=== PATIENT | female | born 1935 | race Caucasian/White ===

== ENCOUNTER → 2018-12-15 | Outpatient (CLI) | payer MEDICARE ==
[~2018-12-15] MED LIST: BAYER ASPIRIN C81 MG PO; BENEFIBER1 EACH PO; CALCITRATE200 MG PO; CLONAZEPAM0.5 M1 PO; GOOD NEIGHBOR150 M1 PO; LEVAQUIN250 MG PO; LEXAPRO20 MG PO; LOMOTIL 0.025 M1 TA1 PO; METFORMIN500 MG PO; OMEPRAZOLE MAGN20 MG PO; PREMARIN0.45 MG PO; PRESERVISION1 SGL PO; QUALITY CHOICE10 M3 PO; SINEMET 25-1001 TA1 PO; Synthroid,Levo25 MCG PO; ULTRAM50 MG PO; VITAMINS FOR HA1 CAP PO; XANAX0.25 MG PO; ZOFRAN ODT4 MG SL; [UNRECOGNIZED DRUG - OTHER] OP
[2018-12-15 08:21] LABS: BASO # 0.1 10*3/uL (0.0-0.1); BASO % 0.9 % (0.0-1.0); EOS # 0.4 10*3/uL (0.0-0.4); HEMATOCRIT 43.5 % (37.0-47.0); HEMOGLOBIN 14.7 g/dl (12.0-16.0); LYMPH # 1.1 10*3/uL (1.3-4.4); LYMPH % 13.3 % (27.0-41.0); MEAN CELL VOLUME 97.3 fl (81.0-99.0); MEAN CORPUSCULAR HGB 32.9 pg (27.0-31.0); MEAN CORPUSCULAR HGB CONC 33.8 g/dl (33.0-37.0); MEAN PLATELET VOLUME 8.5 fl (9.6-12.3); MONO # 0.8 10*3/uL (0.1-1.0); MONO % 10.3 % (3.0-9.0); NEUT # 5.7 10*3/uL (2.3-7.9); PLATELET COUNT AUTOMATED 389 10*3/uL (130-400); RED BLOOD COUNT 4.47 10*6/uL (4.10-5.10); RED CELL DISTRI WIDTH 13.2 % (0-14.5); WHITE BLOOD COUNT 8.1 10*3/uL (4.8-10.8)
[2018-12-15 08:47] LABS: ALBUMIN 4.3 gm/dl (3.1-4.5); BUN 22 mg/dl (7-24); CHLORIDE 103 mmol/L (98-107); CHOLESTEROL 124 mg/dL (<200); CREATININE 0.92 mg/dL (0.55-1.02); FREE T4 0.97 ng/dl (0.76-1.46); POTASSIUM 4.3 mmol/L (3.5-5.1); SGOT/AST 9 IU/L (3-35); SGPT/ALT 8 U/L (12-78); SODIUM 137 mmol/L (136-145); TOTAL PROTEIN 8.6 gm/dL (6.4-8.2); TRIGLYCERIDES 42 mg/dl (<150); VLDL CHOLESTEROL 8 mg/dL (6-40)
[2018-12-15 08:54] LABS: ALKALINE PHOSPHATASE 75 U/L (45-117); HDL CHOLESTEROL 72 mg/dl (40-60); LDL CHOLESTEROL 44 mg/dL (9-159)
[2018-12-15 09:32] LABS: VITAMIN D, 25-HYDROXY 110.5 ng/mL (30-100)
== END | disposition home or self-care (01) ==
LOC: LAB 07:57
PROVIDERS: Internal Medicine
DX: E11.65 Type 2 diabetes mellitus with hyperglycemia (principal); I10 Essential (primary) hypertension; E78.2 Mixed hyperlipidemia; D52.9 Folate deficiency anemia, unspecified; D51.9 Vitamin B12 deficiency anemia, unspecified; E67.3 Hypervitaminosis D

== ENCOUNTER 2018-12-28 13:13 | Emergency (ER) | payer MEDICARE ==
[~2018-12-28] VITALS: Ht 144.7 cm; Wt 48.1 kg
--- NOTE | ~2018-12-28 | EKG ---
[place], [place] ELECTROCARDIOGRAM REPORT NAME: SHONA SHETH UNIT #: [id number] ROOM: DOCTOR: EPIPHANY DRAFT REPORT BIRTHDATE: [birth year] [facility] Test Date: 2018-12-28 Test Time: 14:16:46 Pat Name: SHONA SHETH Department: Room: Gender: F Caregiver Assisted Living: Sushma Calero : 1935 Requested By: ANNE CANSECO Order Number: [id number] Reading MD: William Flores MD Measurements Intervals [place] Rate: 99 P: 75 HI: 136 QRS: 76 QRSD: 86 T: 49 QT: 338 QTc: 434 Interpretive Statements Sinus rhythm Borderline low voltage, extremity leads No previous ECG available for comparison Electronically Signed On 12-29-2018 5:28:53 PDT by William Flores MD CM:EKGRPT:ELECTROCARDIOGRAM REPORT [id number] ANNE KILGORE DRAFT REPORT ANNE CANSECO M.D.
[2018-12-28 14:27] LABS: BASO # 0.1 10*3/uL (0.0-0.1); BASO % 0.7 % (0.0-1.0); EOS # 0.2 10*3/uL (0.0-0.4); EOS % 2.9 % (1.0-4.0); HEMATOCRIT 37.9 % (37.0-47.0); HEMOGLOBIN 13.2 g/dl (12.0-16.0); LYMPH # 1.1 10*3/uL (1.3-4.4); LYMPH % 14.3 % (27.0-41.0); MEAN CELL VOLUME 95.2 fl (81.0-99.0); MEAN CORPUSCULAR HGB 33.2 pg (27.0-31.0); MEAN CORPUSCULAR HGB CONC 34.8 g/dl (33.0-37.0); MEAN PLATELET VOLUME 8.5 fl (9.6-12.3); MONO # 0.6 10*3/uL (0.1-1.0); MONO % 8.4 % (3.0-9.0); NEUT # 5.6 10*3/uL (2.3-7.9); NEUT % 73.3 % (47.0-73.0); PLATELET COUNT AUTOMATED 308 10*3/uL (130-400); RED BLOOD COUNT 3.98 10*6/uL (4.10-5.10); RED CELL DISTRI WIDTH 13.7 % (0-14.5); WHITE BLOOD COUNT 7.6 10*3/uL (4.8-10.8)
[2018-12-28 14:41] LABS: ALBUMIN 3.8 gm/dl (3.1-4.5); ALKALINE PHOSPHATASE 81 U/L (45-117); BUN 19 mg/dl (7-24); CHLORIDE 108 mmol/L (98-107); CREATININE 0.87 mg/dL (0.55-1.02); SGOT/AST 15 IU/L (3-35); SGPT/ALT 9 U/L (12-78); SODIUM 141 mmol/L (136-145); TOTAL PROTEIN 7.6 gm/dL (6.4-8.2)
[2018-12-28 14:57] LABS: BILIRUBIN NEGATIVE (NEGATIVE); BLOOD NEGATIVE (NEGATIVE); CLARITY CLEAR (CLEAR); COLOR YELLOW (YELLOW); GLUCOSE NEGATIVE (NEGATIVE); KETONE NEGATIVE (NEGATIVE); LEUKO ESTERASE NEGATIVE (NEGATIVE); NITRITE NEGATIVE (NEGATIVE); UROBILINOGEN 0.2 E.U./dl (0.2-1.0)
[2018-12-28 15:10] LABS: EPITHELIAL CELLS 0-2
== END 2018-12-28 16:16 | disposition home or self-care (01) ==
LOC: ED 13:13
PROVIDERS: Emergency Medicine
DX: S00.93XA Contusion of unspecified part of head, initial encounter (principal); E11.9 Type 2 diabetes mellitus without complications; G20 Parkinson's disease; R55 Syncope and collapse; W01.198A Fall on same level from slipping, tripping and stumbling with subsequent striking against other object, initial encounter; Y93.89 Activity, other specified; Y92.89 Other specified places as the place of occurrence of the external cause; Y99.8 Other external cause status

== ENCOUNTER 2019-04-02 19:34 | Emergency (ER) | payer MEDICARE ==
[~2019-04-02] VITALS: Ht 144.7 cm; Wt 47.6 kg
== END 2019-04-02 23:42 | disposition home or self-care (01) ==
LOC: ED 19:34
DX: S01.112A Laceration without foreign body of left eyelid and periocular area, initial encounter (principal); S80.11XA Contusion of right lower leg, initial encounter; E11.9 Type 2 diabetes mellitus without complications; Z88.1 Allergy status to other antibiotic agents; Z79.899 Other long term (current) drug therapy; Z79.82 Long term (current) use of aspirin; W01.10XA Fall on same level from slipping, tripping and stumbling with subsequent striking against unspecified object, initial encounter; Y93.G3 Activity, cooking and baking; Y92.090 Kitchen in other non-institutional residence as the place of occurrence of the external cause; Y99.8 Other external cause status

== ENCOUNTER 2019-04-03 11:30 | Emergency (ER) | payer MEDICARE ==
[~2019-04-03] VITALS: Ht 144.7 cm; Wt 47.6 kg
== END 2019-04-03 12:21 | disposition home or self-care (01) ==
LOC: ED 11:30
DX: S00.12XA Contusion of left eyelid and periocular area, initial encounter (principal); E11.9 Type 2 diabetes mellitus without complications; Z88.1 Allergy status to other antibiotic agents; Z79.899 Other long term (current) drug therapy; Z79.82 Long term (current) use of aspirin; W19.XXXA Unspecified fall, initial encounter; Y93.89 Activity, other specified; Y92.89 Other specified places as the place of occurrence of the external cause; Y99.8 Other external cause status

== ENCOUNTER → 2019-04-06 | Outpatient (CLI) | payer MEDICARE ==
[2019-04-06 14:06] LABS: BASO # 0.1 10*3/uL (0.0-0.1); BASO % 0.8 % (0.0-1.0); EOS # 0.1 10*3/uL (0.0-0.4); EOS % 2.1 % (1.0-4.0); HEMATOCRIT 37.1 % (37.0-47.0); HEMOGLOBIN 12.4 g/dl (12.0-16.0); LYMPH # 1.2 10*3/uL (1.3-4.4); LYMPH % 18.3 % (27.0-41.0); MEAN CELL VOLUME 97.4 fl (81.0-99.0); MEAN CORPUSCULAR HGB 32.5 pg (27.0-31.0); MEAN CORPUSCULAR HGB CONC 33.4 g/dl (33.0-37.0); MEAN PLATELET VOLUME 8.9 fl (9.6-12.3); MONO # 0.6 10*3/uL (0.1-1.0); MONO % 9.4 % (3.0-9.0); NEUT # 4.4 10*3/uL (2.3-7.9); NEUT % 69.1 % (47.0-73.0); PLATELET COUNT AUTOMATED 324 10*3/uL (130-400); RED BLOOD COUNT 3.81 10*6/uL (4.10-5.10); RED CELL DISTRI WIDTH 13.3 % (0-14.5); WHITE BLOOD COUNT 6.3 10*3/uL (4.8-10.8)
== END | disposition home or self-care (01) ==
LOC: LAB 13:45
PROVIDERS: Internal Medicine
DX: S00.83XA Contusion of other part of head, initial encounter (principal); X58.XXXA Exposure to other specified factors, initial encounter; Y93.89 Activity, other specified; Y92.89 Other specified places as the place of occurrence of the external cause; Y99.8 Other external cause status

== ENCOUNTER → 2019-06-14 | Outpatient (CLI) | payer MEDICARE ==
[~2019-06-14] MED LIST changes: +BUSPAR5 MG PO; +CAL-CITRATE PL1 EACH PO; +CALCIUM + D SO1 EACH PO; +FEROSUL325 M1 PO; +MELATONIN10 M2 PO; +NORCO 5-325 TA1 EACH PO; +Oscal,Oyster S500 MG PO
[2019-06-14 09:04] LABS: BASO # 0.1 10*3/uL (0.0-0.1); BASO % 0.9 % (0.0-1.0); EOS # 0.1 10*3/uL (0.0-0.4); EOS % 1.7 % (1.0-4.0); HEMATOCRIT 39.9 % (37.0-47.0); HEMOGLOBIN 13.3 g/dl (12.0-16.0); LYMPH # 0.9 10*3/uL (1.3-4.4); LYMPH % 17.2 % (27.0-41.0); MEAN CELL VOLUME 96.1 fl (81.0-99.0); MEAN CORPUSCULAR HGB CONC 33.3 g/dl (33.0-37.0); MEAN PLATELET VOLUME 8.3 fl (9.6-12.3); MONO # 0.5 10*3/uL (0.1-1.0); MONO % 8.3 % (3.0-9.0); NEUT # 3.9 10*3/uL (2.3-7.9); NEUT % 71.5 % (47.0-73.0); PLATELET COUNT AUTOMATED 325 10*3/uL (130-400); RED BLOOD COUNT 4.15 10*6/uL (4.10-5.10); RED CELL DISTRI WIDTH 13.2 % (0-14.5); WHITE BLOOD COUNT 5.4 10*3/uL (4.8-10.8)
[2019-06-14 09:41] LABS: ALBUMIN 3.7 gm/dl (3.1-4.5); ALKALINE PHOSPHATASE 63 U/L (45-117); BUN 11 mg/dl (7-24); CHLORIDE 107 mmol/L (98-107); CHOLESTEROL 113 mg/dL (<200); CREATININE 0.79 mg/dL (0.55-1.02); FREE T4 0.94 ng/dl (0.76-1.46); HDL CHOLESTEROL 79 mg/dl (40-60); LDL CHOLESTEROL 26 mg/dL (9-159); POTASSIUM 3.9 mmol/L (3.5-5.1); SGOT/AST 11 IU/L (3-35); SGPT/ALT 9 U/L (12-78); SODIUM 143 mmol/L (136-145); TOTAL PROTEIN 7.5 gm/dL (6.4-8.2); TRIGLYCERIDES 38 mg/dl (<150); VLDL CHOLESTEROL 8 mg/dL (6-40)
[2019-06-14 10:21] LABS: VITAMIN D, 25-HYDROXY 67.5 ng/mL (30-100)
== END | disposition home or self-care (01) ==
LOC: LAB 08:34
PROVIDERS: Internal Medicine
DX: I10 Essential (primary) hypertension (principal); E11.9 Type 2 diabetes mellitus without complications; E78.2 Mixed hyperlipidemia; E55.9 Vitamin D deficiency, unspecified

== ENCOUNTER 2019-07-04 09:52 | Inpatient (IN) | payer MEDICARE ==
[~2019-07-04] VITALS: Ht 142.2 cm; Wt 45.4 kg
[~2019-07-04 09:52] MED LIST changes: -BUSPAR5 MG PO; -CAL-CITRATE PL1 EACH PO; -CALCIUM + D SO1 EACH PO; -FEROSUL325 M1 PO; -MELATONIN10 M2 PO; -NORCO 5-325 TA1 EACH PO; -Oscal,Oyster S500 MG PO
[2019-07-04 09:58] VITALS: BP 148/61
[2019-07-04 11:13] LABS: BASO % 0.5 % (0.0-1.0); EOS # 0.1 10*3/uL (0.0-0.4); EOS % 0.8 % (1.0-4.0); HEMATOCRIT 42.1 % (37.0-47.0); HEMOGLOBIN 14.2 g/dl (12.0-16.0); LYMPH # 1.2 10*3/uL (1.3-4.4); LYMPH % 15.7 % (27.0-41.0); MEAN CELL VOLUME 94.2 fl (81.0-99.0); MEAN CORPUSCULAR HGB 31.8 pg (27.0-31.0); MEAN CORPUSCULAR HGB CONC 33.7 g/dl (33.0-37.0); MEAN PLATELET VOLUME 8.4 fl (9.6-12.3); MONO # 0.6 10*3/uL (0.1-1.0); NEUT # 5.6 10*3/uL (2.3-7.9); NEUT % 74.9 % (47.0-73.0); PLATELET COUNT AUTOMATED 426 10*3/uL (130-400); RED BLOOD COUNT 4.47 10*6/uL (4.10-5.10); RED CELL DISTRI WIDTH 13.4 % (0-14.5); WHITE BLOOD COUNT 7.5 10*3/uL (4.8-10.8)
[2019-07-04 11:27] LABS: ALBUMIN 4.3 gm/dl (3.1-4.5); ALKALINE PHOSPHATASE 62 U/L (45-117); BUN 18 mg/dl (7-24); CHLORIDE 107 mmol/L (98-107); CREATININE 0.91 mg/dL (0.55-1.02); POTASSIUM 3.8 mmol/L (3.5-5.1); SGOT/AST 14 IU/L (3-35); SGPT/ALT 16 U/L (12-78); SODIUM 141 mmol/L (136-145); TOTAL PROTEIN 8.4 gm/dL (6.4-8.2)
[2019-07-04 11:36] LABS: BILIRUBIN NEGATIVE (NEGATIVE); BLOOD NEGATIVE (NEGATIVE); CLARITY SL CLOUDY (CLEAR); COLOR YELLOW (YELLOW); GLUCOSE NEGATIVE (NEGATIVE); KETONE NEGATIVE (NEGATIVE); LEUKO ESTERASE NEGATIVE (NEGATIVE); NITRITE NEGATIVE (NEGATIVE); PH 6.5 (5.0-9.0); UROBILINOGEN 0.2 E.U./dl (0.2-1.0)
[2019-07-04 11:47] LABS: BACTERIA TRACE; RBC 0-2 rbc/hpf (0-2); WBC 0-2 wbc/hpf (0-5)
[2019-07-04 12:00] VITALS: BP 132/72
[2019-07-04 14:00] VITALS: BP 118/88
--- NOTE | 2019-07-04 14:02 | NUR ---
MSADMTime: N A 83 year old FEMALE admitted to 4E under services of TALYA LEONARD MD. Pt. arrived via bed from ER. Chief complaint: WEAKNESS. KOMAL SANDOVAL
[2019-07-04] MEDS ORDERED: FEROSUL325 M1 PO (14:20)
[2019-07-04] MEDS ORDERED: CAL-CITRATE PL1 EACH PO (14:21)
[2019-07-04] MEDS ORDERED: CALCIUM + D SO1 EACH PO (14:23)
[2019-07-04 16:00] VITALS: BP 120/86
[2019-07-04] MEDS ORDERED: MELATONIN10 M2 PO (17:20)
[2019-07-04] MEDS ORDERED: BUSPAR5 MG PO (17:20)
[2019-07-04] MEDS ORDERED: Oscal,Oyster S500 MG PO (18:55)
[2019-07-04 20:00] VITALS: BP 113/63
[2019-07-05] VITALS: BP 145/63
[2019-07-05 08:00] VITALS: BP 142/58
--- NOTE | 2019-07-05 08:05 | NUR ---
PHYSICAL THERAPY Screen and PT eval received will follow thank you Vanesa Alvarenga PT
--- NOTE | 2019-07-05 09:00 | NUR ---
Associate Professor Of Theology in to talk to patient. Patient states lives at home with her daughter. There are 0 steps in the home. Physician: Dr. Marge Khalil Pharmacy: [facility] Home health services: wants [facility] Patient's level of ADLs: MINIMAL ASSIST Patient has working utilities: yes DME: walker Follow-up physician's appointment after d/c: she prefers to make her own follow up appt after discharge Does patient want to access PORTAL?: no Discharge plan discussed with patient. She lives at home with her daughter. She is independent in her ADLs and ambulates with a walker. Discussed short term SNF and she refuses. Discussed home health care services and she is agreeable. When provided with a list of agencies she chose [facility] as she has had them in the past. When medically stable she will be discharged to home with [facility]. She states he daughter will provide transportation on discharge. VASHTI SALGADO
[2019-07-05 12:00] VITALS: BP 148/60
--- NOTE | 2019-07-05 14:06 | NUR ---
PHYSICAL THERAPY Chart review done. Pt off floor for test. Will re-attempt eval as able. Kaleigh Pineda, PT
--- NOTE | 2019-07-05 15:14 | NUR ---
XANAX GIVEN PER REQUEST FOR C/O ANXIETY. WILL MONITOR.
[2019-07-05 16:00] VITALS: BP 138/76
--- NOTE | 2019-07-05 16:12 | NUR ---
Nursing screen received and occupational therapy orders received. Will follow up with patient. thank you. Nieves Ivy, OTR/L
--- NOTE | 2019-07-05 19:15 | NUR ---
PT IS IN BED ASLEEP AT THIS TIME. NO S/S OF DISTRESS NOTED. RESPS ARE EASY AND NONLABORED. BED LOW, CALL LIGHT WITHIN REACH. WILL CONTINUE TO MONITOR.
[2019-07-05 20:00] VITALS: BP 130/71
--- NOTE | 2019-07-05 20:57 | NUR ---
PT MEDICATED WITH PRN TYLENOL AT THIS TIME FOR C/O PAIN IN HER LEFT HIP RATED A 6/10. WILL MONITOR FOR EFFECTIVENESS.
--- NOTE | 2019-07-05 21:30 | NUR ---
PT RESTING COMFORTABLY IN BED WITH NO S/S OF DISTRESS NOTED. PRN TYLENOL EFFECTIVE.
[2019-07-06] VITALS: BP 126/64
[2019-07-06 08:00] VITALS: BP 143/65
[2019-07-06] MEDS ORDERED: NORCO 5-325 TA1 EACH PO (09:17)
--- NOTE | 2019-07-06 09:43 | NUR ---
MESSAGE LEFT ON [facility]S VOICEMAIL ABOUT PENDING DISCHARGE. AWAITING CALL BACK.
--- NOTE | 2019-07-06 10:15 | NUR ---
Occupational Therapy evaluation completed on 4 with full eval to follow. Recommend OT upon d/c with home health. Daughter present and in agreement with this plan. Patient to be discharged today. Emily Shrestha OTr/l
--- NOTE | 2019-07-06 10:15 | NUR ---
PHYSICAL THERAPY Patrick completed low level of complexity 49289 as pt getting dressed and being discharged from hospital to home with daughter. Pt/dgtr agreeable to home health and will have 24 hr care over the next several days until dgtr here today retires and then she will be home with pt t/o the day. Discharge to home with 24 hr care and PT/OT Vanesa Alvarenga PT
--- NOTE | 2019-07-06 10:23 | NUR ---
In to see patient, daughter at bedside. Daughter stating since patient has changed her insurance they are no longer in network with [facility]. Discussed [facility] and they are agreeable. CM notified.
--- NOTE | 2019-07-06 10:29 | NUR ---
Discharge instructions reviewed with patient/family. Patient receptive and verbalizes understanding. Follow-up care arranged. Written instructions given to patient/family. BROOKLYN SANTIAGO
--- NOTE | 2019-07-06 11:55 | NUR ---
Faxed new home health order to [facility] as was discussed with the patient earlier since [facility] is out of network with her insurance.
--- NOTE | 2019-07-06 14:47 | NUR ---
Received call from Rosita martinez [facility]. They are able to accept patient.
== END 2019-07-06 10:29 | disposition home health service (06) | DRG 552 ==
LOC: ED 09:52 → 4E 11:57 → EDHOLD 11:57 → 4E 12:57
PROVIDERS: Nurse Practitioner Family; ADMIT Internal Medicine
DX: M48.061 Spinal stenosis, lumbar region without neurogenic claudication (principal); R62.7 Adult failure to thrive; G20 Parkinson's disease; I10 Essential (primary) hypertension; E11.65 Type 2 diabetes mellitus with hyperglycemia; Z68.22 Body mass index [BMI] 22.0-22.9, adult

== ENCOUNTER → 2020-02-28 | Outpatient (CLI) | payer MEDICARE ==
[~2020-02-28] MED LIST changes: +BUSPAR5 MG PO; +CAL-CITRATE PL1 EACH PO; +CALCIUM + D SO1 EACH PO; +FEROSUL325 M1 PO; +MELATONIN10 M2 PO; +NORCO 5-325 TA1 EACH PO; +Oscal,Oyster S500 MG PO
== END | disposition home or self-care (01) ==
LOC: RAD 14:02
PROVIDERS: ATTEND Internal Medicine
DX: M25.552 Pain in left hip (principal); R07.82 Intercostal pain

== ENCOUNTER → 2020-03-08 | Outpatient (CLI) | payer MEDICARE | END | disposition home or self-care (01) | LOC: RAD 13:18 | PROVIDERS: ATTEND Internal Medicine | DX: Z78.0 Asymptomatic menopausal state (principal) ==

== ENCOUNTER → 2020-04-03 | Outpatient (CLI) | payer MEDICARE ==
[~2020-04-03] MED LIST changes: +ASPIRIN ADULT L81 M2 PO
[2020-04-03 10:53] VITALS: BP 149/76
== END | disposition home or self-care (01) ==
LOC: INJECTION 04-01 11:00
PROVIDERS: ATTEND Internal Medicine
DX: M81.0 Age-related osteoporosis without current pathological fracture (principal); E11.9 Type 2 diabetes mellitus without complications; G20 Parkinson's disease; Z90.710 Acquired absence of both cervix and uterus

== ENCOUNTER → 2020-07-10 | Outpatient (CLI) | payer MEDICARE ==
[2020-07-10 08:45] LABS: BASO # 0.1 10*3/uL (0.0-0.1); BASO % 0.9 % (0.0-1.0); EOS # 0.1 10*3/uL (0.0-0.4); EOS % 2.2 % (1.0-4.0); HEMATOCRIT 38.6 % (37.0-47.0); LYMPH % 16.9 % (27.0-41.0); MEAN CORPUSCULAR HGB 31.3 pg (27.0-31.0); MEAN CORPUSCULAR HGB CONC 33.7 g/dl (33.0-37.0); MEAN PLATELET VOLUME 8.6 fl (9.6-12.3); MONO # 0.5 10*3/uL (0.1-1.0); MONO % 8.3 % (3.0-9.0); NEUT # 4.1 10*3/uL (2.3-7.9); NEUT % 71.5 % (47.0-73.0); PLATELET COUNT AUTOMATED 356 10*3/uL (130-400); RED BLOOD COUNT 4.15 10*6/uL (4.10-5.10); RED CELL DISTRI WIDTH 13.8 % (0-14.5); WHITE BLOOD COUNT 5.8 10*3/uL (4.8-10.8)
[2020-07-10 09:19] LABS: ALBUMIN 3.7 gm/dl (3.1-4.5); BUN 17 mg/dl (7-24); CHLORIDE 107 mmol/L (98-107); CHOLESTEROL 106 mg/dL (<200); CREATININE 0.78 mg/dL (0.55-1.02); POTASSIUM 4.3 mmol/L (3.5-5.1); SGOT/AST 8 IU/L (3-35); SGPT/ALT 9 U/L (12-78); SODIUM 139 mmol/L (136-145); TRIGLYCERIDES 49 mg/dl (<150); VLDL CHOLESTEROL 10 mg/dL (6-40)
[2020-07-10 09:23] LABS: ALKALINE PHOSPHATASE 63 U/L (45-117); FREE T4 0.93 ng/dl (0.76-1.46); HDL CHOLESTEROL 66 mg/dl (40-60); LDL CHOLESTEROL 30 mg/dL (9-159); TOTAL PROTEIN 7.9 gm/dL (6.4-8.2)
[2020-07-10 10:24] LABS: VITAMIN D, 25-HYDROXY 51.4 ng/mL (30-100)
== END | disposition home or self-care (01) ==
LOC: LAB 03:03
PROVIDERS: ATTEND Internal Medicine
DX: Z00.00 Encounter for general adult medical examination without abnormal findings (principal); I10 Essential (primary) hypertension; E11.9 Type 2 diabetes mellitus without complications; E03.9 Hypothyroidism, unspecified; E55.9 Vitamin D deficiency, unspecified

== ENCOUNTER → 2020-10-02 | Outpatient (CLI) | payer MEDICARE ==
[2020-10-02 09:00] VITALS: BP 117/55
== END | disposition home or self-care (01) ==
LOC: INJECTION 00:20
PROVIDERS: ATTEND Internal Medicine
DX: M81.0 Age-related osteoporosis without current pathological fracture (principal); E11.9 Type 2 diabetes mellitus without complications

== ENCOUNTER 2021-02-15 11:09 | Emergency (ER) | payer MEDICARE | END 2021-02-15 13:44 | disposition home or self-care (01) | LOC: ED 11:09 | DX: J06.9 Acute upper respiratory infection, unspecified (principal); Z20.822 Contact with and (suspected) exposure to COVID-19; Z88.1 Allergy status to other antibiotic agents; Z79.899 Other long term (current) drug therapy; Z79.82 Long term (current) use of aspirin ==

== ENCOUNTER → 2021-07-08 | Outpatient (CLI) | payer MEDICARE ==
[2021-07-08 08:27] LABS: BASO # 0.1 10*3/uL (0.0-0.1); EOS # 0.2 10*3/uL (0.0-0.4); EOS % 2.6 % (1.0-4.0); HEMATOCRIT 41.6 % (37.0-47.0); LYMPH # 1.1 10*3/uL (1.3-4.4); LYMPH % 17.3 % (27.0-41.0); MEAN CELL VOLUME 90.6 fl (81.0-99.0); MEAN CORPUSCULAR HGB 30.7 pg (27.0-31.0); MEAN CORPUSCULAR HGB CONC 33.9 g/dl (33.0-37.0); MEAN PLATELET VOLUME 8.6 fl (9.6-12.3); MONO # 0.6 10*3/uL (0.1-1.0); MONO % 9.7 % (3.0-9.0); NEUT # 4.2 10*3/uL (2.3-7.9); NEUT % 69.1 % (47.0-73.0); PLATELET COUNT AUTOMATED 409 10*3/uL (130-400); RED BLOOD COUNT 4.59 10*6/uL (4.10-5.10); RED CELL DISTRI WIDTH 14.9 % (0-14.5); WHITE BLOOD COUNT 6.1 10*3/uL (4.8-10.8)
[2021-07-08 08:48] LABS: BUN 19 mg/dl (7-24); CHLORIDE 106 mmol/L (98-107); CREATININE 0.83 mg/dL (0.55-1.02); POTASSIUM 4.3 mmol/L (3.5-5.1); SGOT/AST 10 IU/L (3-35); SGPT/ALT 7 U/L (12-78); SODIUM 139 mmol/L (136-145)
[2021-07-08 08:53] LABS: ALKALINE PHOSPHATASE 62 U/L (45-117); CHOLESTEROL 125 mg/dL (<200); LDL CHOLESTEROL 39 mg/dL (9-159); T3 UPTAKE 34 % (31-39); THYROXINE (T4) TOTAL 9.6 ug/dl (4.8-13.9); TOTAL PROTEIN 8.4 gm/dL (6.4-8.2); TRIGLYCERIDES 61 mg/dl (<150)
[2021-07-08 09:31] LABS: VITAMIN D, 25-HYDROXY 31.9 ng/mL (30-100)
== END ==
LOC: LAB
PROVIDERS: ATTEND Internal Medicine
DX: I12.9 Hypertensive chronic kidney disease with stage 1 through stage 4 chronic kidney disease, or unspecified chronic kidney disease (principal); Z00.00 Encounter for general adult medical examination without abnormal findings; E03.9 Hypothyroidism, unspecified; E11.9 Type 2 diabetes mellitus without complications; N18.30 Chronic kidney disease, stage 3 unspecified; I10 Essential (primary) hypertension

== ENCOUNTER → 2021-07-15 | Outpatient (CLI) | payer MEDICARE | END | disposition home or self-care (01) | LOC: US 00:38 | PROVIDERS: ATTEND Internal Medicine | DX: I73.9 Peripheral vascular disease, unspecified (principal) ==

== ENCOUNTER → 2021-07-23 | Outpatient (CLI) | payer MEDICARE ==
[2021-07-23 13:48] LABS: BILIRUBIN Negative (Negative); BLOOD Negative (Negative); CLARITY Cloudy (Clear); COLOR Yellow (Yellow); GLUCOSE Negative (Negative); KETONE Negative (Negative); LEUKO ESTERASE Trace (Negative); NITRITE Negative (Negative); UROBILINOGEN 0.2 E.U./dl (0.0-1.0)
[2021-07-23 13:58] LABS: BACTERIA TRACE; CALCIUM OXALATE CRYSTALS 1+
== END | disposition home or self-care (01) ==
LOC: LAB 12:52
PROVIDERS: ATTEND Internal Medicine
DX: N39.0 Urinary tract infection, site not specified (principal)

== ENCOUNTER → 2021-08-08 | Outpatient (CLI) | payer MEDICARE | END | disposition home or self-care (01) | LOC: CT 01:18 | PROVIDERS: ATTEND Internal Medicine | DX: I77.89 Other specified disorders of arteries and arterioles (principal); I73.9 Peripheral vascular disease, unspecified; K80.20 Calculus of gallbladder without cholecystitis without obstruction ==

== ENCOUNTER 2021-08-14 07:43 | Emergency (ER) | payer MEDICARE ==
[~2021-08-14] VITALS: Wt 46.3 kg
[2021-08-14] MEDS ORDERED: HYDROCODONE-AC1 EAC1 PO (10:32)
== END 2021-08-14 10:32 | disposition home or self-care (01) ==
LOC: ED 07:43
DX: M25.551 Pain in right hip (principal); Z88.1 Allergy status to other antibiotic agents; Z79.899 Other long term (current) drug therapy; Z79.82 Long term (current) use of aspirin; Z98.51 Tubal ligation status; Z90.710 Acquired absence of both cervix and uterus

== ENCOUNTER 2021-08-15 20:24 | Emergency (ER) | payer MEDICARE ==
[~2021-08-15] VITALS: Ht 149.8 cm; Wt 46.3 kg
[~2021-08-15 20:24] MED LIST changes: +HYDROCODONE-AC1 EAC1 PO
[2021-08-15 21:35] LABS: BASO % 0.6 % (0.0-1.0); EOS # 0.1 10*3/uL (0.0-0.4); HEMATOCRIT 35.4 % (37.0-47.0); LYMPH # 0.8 10*3/uL (1.3-4.4); LYMPH % 10.9 % (27.0-41.0); MEAN CELL VOLUME 92.7 fl (81.0-99.0); MEAN CORPUSCULAR HGB 31.2 pg (27.0-31.0); MEAN CORPUSCULAR HGB CONC 33.6 g/dl (33.0-37.0); MEAN PLATELET VOLUME 8.5 fl (9.6-12.3); MONO # 0.9 10*3/uL (0.1-1.0); MONO % 12.9 % (3.0-9.0); NEUT # 5.2 10*3/uL (2.3-7.9); NEUT % 74.3 % (47.0-73.0); PLATELET COUNT AUTOMATED 315 10*3/uL (130-400); RED BLOOD COUNT 3.82 10*6/uL (4.10-5.10); RED CELL DISTRI WIDTH 14.6 % (0-14.5)
[2021-08-15 21:52] LABS: ALKALINE PHOSPHATASE 51 U/L (45-117); BUN 25 mg/dl (7-24); CHLORIDE 108 mmol/L (98-107); CREATININE 0.85 mg/dL (0.55-1.02); SGOT/AST 10 IU/L (3-35); SODIUM 138 mmol/L (136-145); TOTAL PROTEIN 7.2 gm/dL (6.4-8.2)
[2021-08-15 21:56] LABS: SGPT/ALT < 6 U/L (12-78)
[2021-08-15 23:02] LABS: BILIRUBIN 1+ (Negative); BLOOD Negative (Negative); CLARITY Clear (Clear); COLOR Dark Yellow (Yellow); GLUCOSE Negative (Negative); KETONE Trace (Negative); LEUKO ESTERASE Trace (Negative); NITRITE Negative (Negative); PH 5.5 (4.5-8.0); SPECIFIC GRAVITY >= 1.030 (1.001-1.030)
[2021-08-15 23:15] LABS: EPITHELIAL CELLS 21-30
[2021-08-15 23:16] LABS: WBC 0-2 wbc/hpf (0-5)
[2021-08-15 23:17] LABS: BACTERIA TRACE
== END 2021-08-16 00:50 | disposition home or self-care (01) ==
LOC: ED 20:24
PROVIDERS: Emergency Medicine; Internal Medicine
DX: S70.11XA Contusion of right thigh, initial encounter (principal); K40.90 Unilateral inguinal hernia, without obstruction or gangrene, not specified as recurrent; Z88.1 Allergy status to other antibiotic agents; Z79.899 Other long term (current) drug therapy; Z79.82 Long term (current) use of aspirin; Z90.711 Acquired absence of uterus with remaining cervical stump; Z98.51 Tubal ligation status; W18.39XA Other fall on same level, initial encounter; Y93.89 Activity, other specified; Y92.89 Other specified places as the place of occurrence of the external cause; Y99.8 Other external cause status

== ENCOUNTER 2021-08-25 10:33 | Inpatient (IN) | payer MEDICARE ==
[~2021-08-25] VITALS: Ht 149.8 cm; Wt 46.1 kg
[2021-08-25 10:36] VITALS: BP 149/49
[2021-08-25] MEDS ORDERED: PROVENTIL HFA6.7 GM INH (10:41)
[2021-08-25] MEDS ORDERED: CYMBALTA30 MG PO (10:42)
[2021-08-25 11:17] LABS: BASO % 0.6 % (0.0-1.0); EOS # 0.1 10*3/uL (0.0-0.4); EOS % 1.7 % (1.0-4.0); LYMPH # 0.7 10*3/uL (1.3-4.4); LYMPH % 10.6 % (27.0-41.0); MEAN CELL VOLUME 92.7 fl (81.0-99.0); MEAN CORPUSCULAR HGB 31.1 pg (27.0-31.0); MEAN CORPUSCULAR HGB CONC 33.5 g/dl (33.0-37.0); MEAN PLATELET VOLUME 8.1 fl (9.6-12.3); MONO # 0.8 10*3/uL (0.1-1.0); MONO % 10.9 % (3.0-9.0); NEUT # 5.3 10*3/uL (2.3-7.9); NEUT % 75.9 % (47.0-73.0); PLATELET COUNT AUTOMATED 527 10*3/uL (130-400); RED BLOOD COUNT 3.99 10*6/uL (4.10-5.10); RED CELL DISTRI WIDTH 14.8 % (0-14.5)
[2021-08-25 11:28] LABS: ACT PARTIAL THROMBO TIME 28.3 SECONDS (20.0-32.1)
[2021-08-25 11:37] LABS: ALKALINE PHOSPHATASE 82 U/L (45-117); BUN 9 mg/dl (7-24); CHLORIDE 110 mmol/L (98-107); CREATININE 0.76 mg/dL (0.55-1.02); LIPASE 174 U/L (73-393); POTASSIUM 3.6 mmol/L (3.5-5.1); SGOT/AST 13 IU/L (3-35); SGPT/ALT 7 U/L (12-78); SODIUM 141 mmol/L (136-145)
[2021-08-25 13:03] LABS: BILIRUBIN 1+ (Negative); BLOOD Negative (Negative); CLARITY Clear (Clear); COLOR Dark Yellow (Yellow); GLUCOSE Negative (Negative); KETONE Trace (Negative); LEUKO ESTERASE Trace (Negative); NITRITE Negative (Negative); PH 5.5 (4.5-8.0)
[2021-08-25 13:15] LABS: CALCIUM OXALATE CRYSTALS 1+; FINE GRANULAR CAST 0-2
[2021-08-25 13:16] LABS: MUCOUS 1+
[2021-08-25 16:52] VITALS: BP 135/62
[2021-08-25] MEDS ORDERED: METFORMIN HYD1000 MG PO (17:48)
[2021-08-25] MEDS ORDERED: GABAPENTIN100 M2 PO (17:51)
[2021-08-25] MEDS ORDERED: CYMBALTA60 MG PO (17:51)
[2021-08-25] MEDS ORDERED: FOSAMAX70 M1 PO (17:52)
[2021-08-25] MEDS ORDERED: COMTAN200 MG PO (17:52)
[2021-08-25] MEDS ORDERED: 50+ ADULT EYE1 EACH PO (17:53)
[2021-08-25] MEDS ORDERED: REFRESH TEARS15 ML OP (17:57)
[2021-08-25 20:00] VITALS: BP 160/60
[2021-08-26] VITALS: BP 150/72
[2021-08-26 06:24] LABS: BUN 8 mg/dl (7-24); CHLORIDE 110 mmol/L (98-107); POTASSIUM 3.9 mmol/L (3.5-5.1); SODIUM 142 mmol/L (136-145)
[2021-08-26 06:28] LABS: ALKALINE PHOSPHATASE 65 U/L (45-117); CREATININE 0.62 mg/dL (0.55-1.02); SGOT/AST 9 IU/L (3-35); SGPT/ALT 10 U/L (12-78); TOTAL PROTEIN 6.9 gm/dL (6.4-8.2)
[2021-08-26 06:33] LABS: BASO % 0.5 % (0.0-1.0); EOS # 0.1 10*3/uL (0.0-0.4); EOS % 1.9 % (1.0-4.0); HEMATOCRIT 34.3 % (37.0-47.0); LYMPH # 0.6 10*3/uL (1.3-4.4); LYMPH % 8.8 % (27.0-41.0); MEAN CORPUSCULAR HGB 30.9 pg (27.0-31.0); MEAN CORPUSCULAR HGB CONC 33.2 g/dl (33.0-37.0); MEAN PLATELET VOLUME 8.3 fl (9.6-12.3); MONO # 0.8 10*3/uL (0.1-1.0); MONO % 12.7 % (3.0-9.0); NEUT # 4.8 10*3/uL (2.3-7.9); NEUT % 75.3 % (47.0-73.0); PLATELET COUNT AUTOMATED 514 10*3/uL (130-400); RED BLOOD COUNT 3.69 10*6/uL (4.10-5.10); RED CELL DISTRI WIDTH 14.6 % (0-14.5); WHITE BLOOD COUNT 6.4 10*3/uL (4.8-10.8)
[2021-08-26 08:00] VITALS: BP 167/78
[2021-08-26] MEDS ORDERED: PRESERVISION A1 EAC4 PO (10:50)
[2021-08-26 12:00] VITALS: BP 168/72
[2021-08-26 16:00] VITALS: BP 157/75
[2021-08-26 20:00] VITALS: BP 171/76
[2021-08-27] VITALS: BP 166/83
[2021-08-27 08:00] VITALS: BP 145/62
[2021-08-27] MEDS ORDERED: VIBRAMYCIN100 MG PO (08:32)
== END 2021-08-27 13:06 | disposition home or self-care (01) | DRG 179 ==
LOC: ED 10:33 → 4E 13:42 → EDHOLD 13:42 → 4E 14:02
PROVIDERS: Emergency Medicine; ADMIT Internal Medicine; ATTEND Internal Medicine
DX: J15.6 Pneumonia due to other Gram-negative bacteria (principal); G20 Parkinson's disease; R62.7 Adult failure to thrive; I10 Essential (primary) hypertension; E11.9 Type 2 diabetes mellitus without complications; E03.9 Hypothyroidism, unspecified; R29.6 Repeated falls; F41.1 Generalized anxiety disorder; Z90.710 Acquired absence of both cervix and uterus

== ENCOUNTER → 2021-09-18 | Outpatient (CLI) | payer MEDICARE ==
[~2021-09-18] MED LIST changes: +50+ ADULT EYE1 EACH PO; +COMTAN200 MG PO; +CYMBALTA30 MG PO; +CYMBALTA60 MG PO; +FOSAMAX70 M1 PO; +GABAPENTIN100 M2 PO; +METFORMIN HYD1000 MG PO; +PRESERVISION A1 EAC4 PO; +PROVENTIL HFA6.7 GM INH; +REFRESH TEARS15 ML OP; +VIBRAMYCIN100 MG PO
== END | disposition home or self-care (01) ==
LOC: RAD 00:06
PROVIDERS: ATTEND Internal Medicine
DX: R06.02 Shortness of breath (principal); K44.9 Diaphragmatic hernia without obstruction or gangrene

== ENCOUNTER 2022-03-25 16:04 | Emergency (ER) | payer MEDICARE ==
[~2022-03-25] VITALS: Ht 149.9 cm; Wt 39.9 kg
[~2022-03-25 16:04] MED LIST changes: +METFORMIN HYDR500 MG PO; -METFORMIN500 MG PO
[2022-03-25 17:19] LABS: BILIRUBIN 1+ (Negative); BLOOD Negative (Negative); CLARITY Clear (Clear); COLOR Dark Yellow (Yellow); GLUCOSE Negative (Negative); KETONE Trace (Negative); LEUKO ESTERASE 1+ (Negative); NITRITE Negative (Negative); PH 5.5 (4.5-8.0); SPECIFIC GRAVITY 1.025 (1.001-1.030); UROBILINOGEN 0.2 E.U./dl (0.0-1.0)
[2022-03-25] MEDS ORDERED: MYRBETRIQ25 M1 PO (17:19)
[2022-03-25] MEDS ORDERED: Nizoral 2%15 GM T (17:20)
[2022-03-25] MEDS ORDERED: B12 ACTIVE1000 MCG PO (17:21)
[2022-03-25] MEDS ORDERED: ASPIRIN CHEWABL81 MG PO (17:22)
[2022-03-25 17:27] LABS: BASO % 0.2 % (0.0-1.0); EOS % 0.7 % (1.0-4.0); HEMATOCRIT 38.2 % (37.0-47.0); LYMPH # 0.5 10*3/uL (1.3-4.4); LYMPH % 8.1 % (27.0-41.0); MEAN CELL VOLUME 92.3 fl (81.0-99.0); MEAN CORPUSCULAR HGB 32.1 pg (27.0-31.0); MEAN CORPUSCULAR HGB CONC 34.8 g/dl (33.0-37.0); MEAN PLATELET VOLUME 8.3 fl (9.6-12.3); MONO # 0.5 10*3/uL (0.1-1.0); NEUT # 4.9 10*3/uL (2.3-7.9); NEUT % 82.7 % (47.0-73.0); PLATELET COUNT AUTOMATED 315 10*3/uL (130-400); RED BLOOD COUNT 4.14 10*6/uL (4.10-5.10); RED CELL DISTRI WIDTH 13.8 % (0-14.5); WHITE BLOOD COUNT 5.9 10*3/uL (4.8-10.8)
[2022-03-25 17:30] LABS: BACTERIA 1+; CALCIUM OXALATE CRYSTALS 1+
[2022-03-25 17:32] LABS: YEAST TRACE
[2022-03-25 17:41] LABS: ALKALINE PHOSPHATASE 72 U/L (45-117); BUN 18 mg/dl (7-24); CHLORIDE 106 mmol/L (98-107); CREATININE 0.71 mg/dL (0.55-1.02); POTASSIUM 4.1 mmol/L (3.5-5.1); SGOT/AST 9 IU/L (3-35); SGPT/ALT 6 U/L (12-78); SODIUM 137 mmol/L (136-145); TOTAL PROTEIN 7.7 gm/dL (6.4-8.2)
[2022-03-25 17:57] LABS: ACT PARTIAL THROMBO TIME 30.8 SECONDS (20.0-32.1)
== END 2022-03-25 19:02 | disposition home or self-care (01) ==
LOC: ED 16:04
PROVIDERS: Emergency Medicine
DX: R50.9 Fever, unspecified (principal); Z20.822 Contact with and (suspected) exposure to COVID-19; R05.9 Cough, unspecified; R06.02 Shortness of breath; R41.0 Disorientation, unspecified; Z88.1 Allergy status to other antibiotic agents; Z79.899 Other long term (current) drug therapy; Z98.51 Tubal ligation status; Z90.710 Acquired absence of both cervix and uterus

== ENCOUNTER 2022-06-26 12:35 | Emergency (ER) | payer MEDICARE ==
[~2022-06-26] VITALS: Wt 43.5 kg
[~2022-06-26 12:35] MED LIST changes: +ASPIRIN CHEWABL81 MG PO; +B12 ACTIVE1000 MCG PO; +MYRBETRIQ25 M1 PO; +Nizoral 2%15 GM T
[2022-06-26 13:30] LABS: BASO % 0.6 % (0.0-1.0); EOS % 0.5 % (1.0-4.0); HEMATOCRIT 39.7 % (37.0-47.0); LYMPH # 1.3 10*3/uL (1.3-4.4); LYMPH % 20.8 % (27.0-41.0); MEAN CELL VOLUME 94.3 fl (81.0-99.0); MEAN CORPUSCULAR HGB 31.8 pg (27.0-31.0); MEAN CORPUSCULAR HGB CONC 33.8 g/dl (33.0-37.0); MEAN PLATELET VOLUME 8.5 fl (9.6-12.3); MONO # 0.7 10*3/uL (0.1-1.0); MONO % 10.4 % (3.0-9.0); NEUT # 4.3 10*3/uL (2.3-7.9); NEUT % 67.5 % (47.0-73.0); PLATELET COUNT AUTOMATED 343 10*3/uL (130-400); RED BLOOD COUNT 4.21 10*6/uL (4.10-5.10); RED CELL DISTRI WIDTH 14.3 % (0-14.5); WHITE BLOOD COUNT 6.4 10*3/uL (4.8-10.8)
[2022-06-26 13:45] LABS: ALKALINE PHOSPHATASE 59 U/L (46-116); BUN 16 mg/dl (9-23); CHLORIDE 106 mmol/L (98-107); POTASSIUM 4.4 mmol/L (3.4-5.1); TOTAL PROTEIN 7.2 gm/dL (6.0-8.0)
[2022-06-26 13:46] LABS: SGPT/ALT < 7 U/L (10-49)
== END 2022-06-26 16:47 | disposition home or self-care (01) ==
LOC: ED 12:35
PROVIDERS: Nurse Practitioner Family
DX: S22.31XA Fracture of one rib, right side, initial encounter for closed fracture (principal); Z88.1 Allergy status to other antibiotic agents; Z88.2 Allergy status to sulfonamides; Z88.8 Allergy status to other drugs, medicaments and biological substances; Z98.51 Tubal ligation status; Z90.711 Acquired absence of uterus with remaining cervical stump; Z98.890 Other specified postprocedural states; W19.XXXA Unspecified fall, initial encounter; Y93.89 Activity, other specified; Y92.89 Other specified places as the place of occurrence of the external cause; Y99.8 Other external cause status

== ENCOUNTER → 2022-09-16 | Outpatient (CLI) | payer MEDICARE ==
[2022-09-16 09:51] LABS: BASO # 0.1 10*3/uL (0.0-0.1); BASO % 1.2 % (0.0-1.0); EOS # 0.1 10*3/uL (0.0-0.4); EOS % 2.1 % (1.0-4.0); HEMATOCRIT 43.3 % (37.0-47.0); LYMPH # 1.4 10*3/uL (1.3-4.4); LYMPH % 26.5 % (27.0-41.0); MEAN CELL VOLUME 93.5 fl (81.0-99.0); MEAN CORPUSCULAR HGB 32.4 pg (27.0-31.0); MEAN CORPUSCULAR HGB CONC 34.6 g/dl (33.0-37.0); MEAN PLATELET VOLUME 8.4 fl (9.6-12.3); MONO # 0.5 10*3/uL (0.1-1.0); MONO % 10.1 % (3.0-9.0); NEUT # 3.1 10*3/uL (2.3-7.9); NEUT % 59.7 % (47.0-73.0); PLATELET COUNT AUTOMATED 348 10*3/uL (130-400); RED BLOOD COUNT 4.63 10*6/uL (4.10-5.10); RED CELL DISTRI WIDTH 14.3 % (0-14.5); WHITE BLOOD COUNT 5.1 10*3/uL (4.8-10.8)
[2022-09-16 10:22] LABS: ALKALINE PHOSPHATASE 60 U/L (46-116); BUN 13 mg/dl (9-23); CHLORIDE 108 mmol/L (98-107); CHOLESTEROL 119 mg/dL (<200); LDL CHOLESTEROL 35 mg/dL (9-159); THYROID STIM HORMONE (HS) 2.744 uIU/ml (0.550-4.780); TOTAL PROTEIN 7.3 gm/dL (6.0-8.0); TRIGLYCERIDES 51 mg/dl (<150)
[2022-09-16 10:25] LABS: SGPT/ALT < 7 U/L (10-49)
[2022-09-16 10:59] LABS: VITAMIN D, 25-HYDROXY 29.8 ng/mL (30-100)
== END | disposition home or self-care (01) ==
LOC: LAB 01:55
PROVIDERS: ATTEND Internal Medicine
DX: I12.9 Hypertensive chronic kidney disease with stage 1 through stage 4 chronic kidney disease, or unspecified chronic kidney disease (principal); E11.22 Type 2 diabetes mellitus with diabetic chronic kidney disease; N18.30 Chronic kidney disease, stage 3 unspecified; E11.65 Type 2 diabetes mellitus with hyperglycemia; F41.1 Generalized anxiety disorder; M81.0 Age-related osteoporosis without current pathological fracture; G64 Other disorders of peripheral nervous system; R29.6 Repeated falls; M54.50 Low back pain, unspecified; G20 Parkinson's disease

== ENCOUNTER → 2023-03-12 | Outpatient (CLI) | payer MEDICARE | END | disposition home or self-care (01) | LOC: RAD 00:37 | PROVIDERS: ATTEND Internal Medicine | DX: M25.512 Pain in left shoulder (principal); K44.9 Diaphragmatic hernia without obstruction or gangrene; R06.02 Shortness of breath ==

== ENCOUNTER → 2023-03-22 | Outpatient (CLI) | payer MEDICARE ==
[2023-03-22 09:44] LABS: BASO # 0.1 10*3/uL (0.0-0.1); EOS # 0.2 10*3/uL (0.0-0.4); EOS % 3.4 % (1.0-4.0); HEMATOCRIT 45.6 % (37.0-47.0); LYMPH # 1.3 10*3/uL (1.3-4.4); MEAN CELL VOLUME 94.8 fl (81.0-99.0); MEAN CORPUSCULAR HGB CONC 33.8 g/dl (33.0-37.0); MEAN PLATELET VOLUME 8.5 fl (9.6-12.3); MONO # 0.5 10*3/uL (0.1-1.0); MONO % 8.6 % (3.0-9.0); NEUT # 3.9 10*3/uL (2.3-7.9); NEUT % 64.7 % (47.0-73.0); PLATELET COUNT AUTOMATED 351 10*3/uL (130-400); RED BLOOD COUNT 4.81 10*6/uL (4.10-5.10); RED CELL DISTRI WIDTH 13.9 % (0-14.5)
[2023-03-22 10:12] LABS: ALKALINE PHOSPHATASE 71 U/L (46-116); BUN 10 mg/dl (9-23); CHLORIDE 106 mmol/L (98-107); CHOLESTEROL 124 mg/dL (<200); LDL CHOLESTEROL 41 mg/dL (9-159); POTASSIUM 3.8 mmol/L (3.4-5.1); SGPT/ALT < 7 U/L (5-49); TOTAL PROTEIN 7.9 gm/dL (6.0-8.0); TRIGLYCERIDES 50 mg/dl (<150)
== END | disposition home or self-care (01) ==
LOC: LAB 00:55
PROVIDERS: ATTEND Nurse Practitioner Family
DX: Z79.899 Other long term (current) drug therapy (principal)

== ENCOUNTER → 2023-03-25 | Outpatient (CLI) | payer MEDICARE ==
[2023-03-25 11:34] LABS: FREE T4 1.06 ng/dl (0.89-1.76); T3 UPTAKE 21.4 % (22.4-36.7)
== END | disposition home or self-care (01) ==
LOC: LAB 01:08
PROVIDERS: ATTEND Internal Medicine
DX: E03.9 Hypothyroidism, unspecified (principal); Z00.01 Encounter for general adult medical examination with abnormal findings; R79.89 Other specified abnormal findings of blood chemistry

== ENCOUNTER → 2023-12-01 | Outpatient (CLI) | payer MEDICARE ==
[~2023-12-01] MED LIST changes: +BARIUM SULFATE 98% 340 GM BOT PO ONE; +BUSPIRONE HCL10 MG PO; +MELATONIN5 M7 PO; +MEMANTINE HCL5 MG PO; +OXYBUTYNIN5 MG PO; +RIVASTIGMINE T1.5 M1 PO; +RIVASTIGMINE TAR3 M1 PO
== END | disposition home or self-care (01) ==
LOC: RAD/SH 00:24
PROVIDERS: ATTEND Internal Medicine
DX: R13.10 Dysphagia, unspecified (principal)

== ENCOUNTER 2024-01-22 23:55 | Inpatient (IN) | payer MEDICARE ==
[~2024-01-22] VITALS: Ht 147.3 cm; Wt 39.9 kg
[~2024-01-22 23:55] MED LIST changes: -BARIUM SULFATE 98% 340 GM BOT PO ONE
[2024-01-23] VITALS (11 sets, daily range): BP systolic 109–141; BP diastolic 49–749
[2024-01-23 00:52] LABS: BASO % 0.7 % (0.0-1.0); EOS # 0.2 10*3/uL (0.0-0.4); HEMATOCRIT 42.5 % (37.0-47.0); LYMPH # 0.9 10*3/uL (1.3-4.4); LYMPH % 16.1 % (27.0-41.0); MEAN CELL VOLUME 94.9 fl (81.0-99.0); MEAN CORPUSCULAR HGB CONC 32.7 g/dl (33.0-37.0); MEAN PLATELET VOLUME 8.4 fl (9.6-12.3); MONO # 0.9 10*3/uL (0.1-1.0); MONO % 16.6 % (3.0-9.0); NEUT # 3.4 10*3/uL (2.3-7.9); NEUT % 63.4 % (47.0-73.0); PLATELET COUNT AUTOMATED 357 10*3/uL (130-400); RED BLOOD COUNT 4.48 10*6/uL (4.10-5.10); RED CELL DISTRI WIDTH 15.2 % (0-14.5); WHITE BLOOD COUNT 5.4 10*3/uL (4.8-10.8)
[2024-01-23 01:08] LABS: ALKALINE PHOSPHATASE 84 U/L (46-116); BUN 15 mg/dl (9-23); CHLORIDE 105 mmol/L (98-107); POTASSIUM 3.8 mmol/L (3.4-5.1); SGPT/ALT 8 U/L (5-49); TOTAL PROTEIN 7.4 gm/dL (6.0-8.0)
[2024-01-23 01:49] LABS: BILIRUBIN Negative (Negative); BLOOD 1+ (Negative); CLARITY Turbid (Clear); COLOR Dark Yellow (Yellow); GLUCOSE Negative (Negative); KETONE Trace (Negative); LEUKO ESTERASE 3+ (Negative); NITRITE Positive (Negative); SPECIFIC GRAVITY 1.015 (1.001-1.030); UROBILINOGEN 0.2 E.U./dl (0.0-1.0)
[2024-01-23 02:02] LABS: BACTERIA 4+; WBC TNTC wbc/hpf (0-5)
[2024-01-23] MEDS ORDERED: Ceftriaxone Sodium 1 GM/10 ML SYR IV ONE (02:15)
[2024-01-23] MEDS ORDERED: ENTACAPONE200 M1 PO (03:18)
[2024-01-23] MEDS ORDERED: NEURONTIN100 MG PO (03:19)
[2024-01-23] MEDS ORDERED: METFORMIN HYDR500 MG PO ×2 (03:20→15:21)
[2024-01-23] MEDS ORDERED: SINEMET 25-1001 EACH PO (03:21)
[2024-01-23] MEDS ORDERED: ESTRACE 0.01%42.5 GM V (03:21)
[2024-01-23] MEDS ORDERED: KLONOPIN1 M1 PO (03:23)
[2024-01-23] MEDS ORDERED: QUETIAPINE FUMA25 MG PO (07:25)
[2024-01-23] MEDS ORDERED: NITROFURANTOIN50 M2 PO (07:25)
[2024-01-23] MEDS ORDERED: 'KLONOPIN0.5 MG PO (07:27)
[2024-01-23] MEDS ORDERED: Tamsulosin Hydrochloride 0.4 MG CAP PO SCH ×2 (10:00→22:00)
[2024-01-23] MEDS ORDERED: Carbidopa/Levodopa 25/100MG 1 TAB TAB PO SCH (14:00)
[2024-01-23] MEDS ORDERED: Melatonin 5 MG TABLET PO PRN (14:50)
[2024-01-23] MEDS ORDERED: ESTRADIOL 42.5 GM TUBE V SCH (14:55)
[2024-01-23] MEDS ORDERED: Duloxetine Hydrochloride 60 MG CAP PO ONE (15:25)
[2024-01-23] MEDS ORDERED: clonAZEPAM 0.5 MG TAB PO ONE (15:25)
[2024-01-23] MEDS ORDERED: LEVOFLOXACIN 50 ML IV SCH (16:00)
[2024-01-23] MEDS ORDERED: LORazepam 2 MG/ML VIAL IV ONE (18:40)
[2024-01-23] MEDS ORDERED: busPIRone Hydrochloride 10 MG TAB PO SCH (22:00)
[2024-01-23] MEDS ORDERED: Rivastigmine Tartrate 3 MG CAP PO SCH (22:00)
[2024-01-23] MEDS ORDERED: GABAPENTIN 100 MG CAP PO SCH (22:00)
[2024-01-23] MEDS ORDERED: ENTACAPONE 200 MG TAB PO SCH (22:00)
[2024-01-24] VITALS (8 sets, daily range): BP systolic 92–117; BP diastolic 42–83
[2024-01-24] MEDS ORDERED: OMEPRAZOLE 20 MG CAP PO SCH (06:00)
[2024-01-24 06:49] LABS: BASO # 0.1 10*3/uL (0.0-0.1); EOS # 0.3 10*3/uL (0.0-0.4); EOS % 5.1 % (1.0-4.0); HEMATOCRIT 40.6 % (37.0-47.0); LYMPH # 1.1 10*3/uL (1.3-4.4); LYMPH % 21.9 % (27.0-41.0); MEAN CELL VOLUME 95.1 fl (81.0-99.0); MEAN CORPUSCULAR HGB 31.1 pg (27.0-31.0); MEAN CORPUSCULAR HGB CONC 32.8 g/dl (33.0-37.0); MEAN PLATELET VOLUME 8.4 fl (9.6-12.3); MONO # 0.8 10*3/uL (0.1-1.0); MONO % 16.2 % (3.0-9.0); NEUT # 2.7 10*3/uL (2.3-7.9); NEUT % 55.4 % (47.0-73.0); PLATELET COUNT AUTOMATED 313 10*3/uL (130-400); RED BLOOD COUNT 4.27 10*6/uL (4.10-5.10); WHITE BLOOD COUNT 4.9 10*3/uL (4.8-10.8)
[2024-01-24 07:12] LABS: BUN 9 mg/dl (9-23); CHLORIDE 105 mmol/L (98-107); POTASSIUM 3.9 mmol/L (3.4-5.1)
[2024-01-24] MEDS ORDERED: QUETIAPINE FUMARATE 25 MG TAB PO SCH (10:00)
[2024-01-24] MEDS ORDERED: ASPIRIN, CHEWABLE 81 MG TAB PO SCH (10:00)
[2024-01-24] MEDS ORDERED: FERROUS SULFATE 325 MG TAB PO SCH (10:00)
[2024-01-24] MEDS ORDERED: Levothyroxine Sodium 25 MCG TAB PO SCH (10:00)
[2024-01-24] MEDS ORDERED: Duloxetine Hydrochloride 60 MG CAP PO SCH (10:00)
[2024-01-24] MEDS ORDERED: clonAZEPAM 0.5 MG TAB PO SCH (10:00)
[2024-01-25] VITALS: BP 134/46; BP 138/92
[2024-01-25 06:09] LABS: BASO % 0.7 % (0.0-1.0); EOS # 0.3 10*3/uL (0.0-0.4); EOS % 5.4 % (1.0-4.0); HEMATOCRIT 39.4 % (37.0-47.0); LYMPH # 1.3 10*3/uL (1.3-4.4); LYMPH % 21.5 % (27.0-41.0); MEAN CELL VOLUME 94.7 fl (81.0-99.0); MEAN CORPUSCULAR HGB 31.5 pg (27.0-31.0); MEAN CORPUSCULAR HGB CONC 33.2 g/dl (33.0-37.0); MEAN PLATELET VOLUME 8.7 fl (9.6-12.3); MONO # 0.8 10*3/uL (0.1-1.0); MONO % 14.1 % (3.0-9.0); NEUT # 3.4 10*3/uL (2.3-7.9); NEUT % 57.8 % (47.0-73.0); PLATELET COUNT AUTOMATED 319 10*3/uL (130-400); RED BLOOD COUNT 4.16 10*6/uL (4.10-5.10); WHITE BLOOD COUNT 5.9 10*3/uL (4.8-10.8)
[2024-01-25 08:00] VITALS: BP 104/42
[2024-01-25 12:00] VITALS: BP 111/50
[2024-01-25] MEDS ORDERED: SILICONE CONTACT LAYER WOUND DRESSING (VERSATEL) ONE (12:27)
[2024-01-25] MEDS ORDERED: FOAM BANDAGE 5X5 T ONE (12:27)
[2024-01-25 16:00] VITALS: BP 110/53
[2024-01-25 20:00] VITALS: BP 103/52
[2024-01-26] VITALS: BP 113/50
[2024-01-26 06:13] LABS: BASO # 0.1 10*3/uL (0.0-0.1); BASO % 0.9 % (0.0-1.0); EOS # 0.3 10*3/uL (0.0-0.4); HEMATOCRIT 39.2 % (37.0-47.0); MEAN CELL VOLUME 93.1 fl (81.0-99.0); MEAN CORPUSCULAR HGB 31.4 pg (27.0-31.0); MEAN CORPUSCULAR HGB CONC 33.7 g/dl (33.0-37.0); MEAN PLATELET VOLUME 8.7 fl (9.6-12.3); MONO # 0.7 10*3/uL (0.1-1.0); MONO % 12.5 % (3.0-9.0); NEUT # 3.4 10*3/uL (2.3-7.9); PLATELET COUNT AUTOMATED 291 10*3/uL (130-400); RED BLOOD COUNT 4.21 10*6/uL (4.10-5.10); WHITE BLOOD COUNT 5.4 10*3/uL (4.8-10.8)
[2024-01-26 08:00] VITALS: BP 119/63
[2024-01-26 12:00] VITALS: BP 134/68
[2024-01-26] MEDS ORDERED: Sinemet Cr 25-11 TAB PO ×2 (15:34→15:35)
[2024-01-26 16:00] VITALS: BP 116/59
[2024-01-26] MEDS ORDERED: Carbidopa/Levodopa CR 25/100MG 1 TAB PO SCH (19:00)
[2024-01-26 20:00] VITALS: BP 113/86
[2024-01-27] VITALS: BP 111/51
[2024-01-27] MEDS ORDERED: Carbidopa/Levodopa CR 25/100MG 1 TAB PO SCH (07:00)
[2024-01-27 08:00] VITALS: BP 147/59
[2024-01-27] MEDS ORDERED: Magnesium Hydroxide 30 ML UDC PO ONE (10:35)
[2024-01-27] MEDS ORDERED: TAMSULOSIN HCL0.4 MG PO (10:48)
[2024-01-27 12:00] VITALS: BP 117/62
== END 2024-01-27 14:03 | DRG 689 ==
LOC: ED 23:55 → 4E 01-23 02:56 → EDHOLD 01-23 02:56 → 4E 01-24 13:15
PROVIDERS: Internal Medicine; ADMIT Internal Medicine; ATTEND Internal Medicine
DX: N39.0 Urinary tract infection, site not specified (principal); G93.41 Metabolic encephalopathy; F33.1 Major depressive disorder, recurrent, moderate; F02.82 Dementia in other diseases classified elsewhere, unspecified severity, with psychotic disturbance; B96.20 Unspecified Escherichia coli [E. coli] as the cause of diseases classified elsewhere; L89.151 Pressure ulcer of sacral region, stage 1; R26.2 Difficulty in walking, not elsewhere classified; R54 Age-related physical debility; R33.9 Retention of urine, unspecified; G30.1 Alzheimer's disease with late onset; E11.9 Type 2 diabetes mellitus without complications; E03.9 Hypothyroidism, unspecified; F41.1 Generalized anxiety disorder; G20.A1 Parkinson's disease without dyskinesia, without mention of fluctuations; E78.2 Mixed hyperlipidemia; Z88.2 Allergy status to sulfonamides; Z88.8 Allergy status to other drugs, medicaments and biological substances; Z88.1 Allergy status to other antibiotic agents; Z90.710 Acquired absence of both cervix and uterus; Z98.51 Tubal ligation status

== ENCOUNTER → 2024-03-01 | Outpatient (CLI) | payer MEDICARE ==
[~2024-03-01] MED LIST changes: +'KLONOPIN0.5 MG PO; +ENTACAPONE200 M1 PO; +ESTRACE 0.01%42.5 GM V; +KLONOPIN1 M1 PO; +NEURONTIN100 MG PO; +NITROFURANTOIN50 M2 PO; +QUETIAPINE FUMA25 MG PO; +SINEMET 25-1001 EACH PO; +Sinemet Cr 25-11 TAB PO; +TAMSULOSIN HCL0.4 MG PO
== END | disposition home or self-care (01) ==
LOC: LAB 11:18
PROVIDERS: ATTEND Internal Medicine
DX: R19.7 Diarrhea, unspecified (principal)

== ENCOUNTER 2024-03-07 19:43 | Emergency (ER) | payer MEDICARE ==
[~2024-03-07] VITALS: Ht 149.8 cm; Wt 43.1 kg
[2024-03-07] MEDS ORDERED: Bacitracin Zinc 14 GM TUBE T ONE (22:05)
== END 2024-03-07 22:35 | disposition home or self-care (01) ==
LOC: ED 19:43
DX: S01.01XA Laceration without foreign body of scalp, initial encounter (principal); E11.9 Type 2 diabetes mellitus without complications; Z88.1 Allergy status to other antibiotic agents; Z88.2 Allergy status to sulfonamides; Z88.8 Allergy status to other drugs, medicaments and biological substances; Z90.711 Acquired absence of uterus with remaining cervical stump; Z98.890 Other specified postprocedural states; W01.10XA Fall on same level from slipping, tripping and stumbling with subsequent striking against unspecified object, initial encounter; Y93.89 Activity, other specified; Y92.002 Bathroom of unspecified non-institutional (private) residence as the place of occurrence of the external cause; Y99.8 Other external cause status

== ENCOUNTER 2024-06-21 10:08 | Inpatient (IN) | payer MEDICARE ==
[~2024-06-21] VITALS: Ht 149.8 cm; Wt 44.5 kg
[~2024-06-21 10:08] MED LIST changes: -Sinemet Cr 25-11 TAB PO
[2024-06-21 10:49] VITALS: BP 142/54
[2024-06-21] MEDS ORDERED: FLUCONAZOLE100 MG PO (11:57)
[2024-06-21] MEDS ORDERED: NAMENDA-5 PO (12:00)
[2024-06-21 12:02] LABS: BUN 13 mg/dl (9-23); CHLORIDE 105 mmol/L (98-107); POTASSIUM 4.3 mmol/L (3.4-5.1)
[2024-06-21 12:25] LABS: BASO % 0.4 % (0.0-1.0); EOS # 0.2 10*3/uL (0.0-0.4); EOS % 2.6 % (1.0-4.0); HEMATOCRIT 43.4 % (37.0-47.0); MEAN CELL VOLUME 95.6 fl (81.0-99.0); MEAN CORPUSCULAR HGB 32.4 pg (27.0-31.0); MEAN CORPUSCULAR HGB CONC 33.9 g/dl (33.0-37.0); MEAN PLATELET VOLUME 8.3 fl (9.6-12.3); MONO % 10.3 % (3.0-9.0); NEUT # 6.9 10*3/uL (2.3-7.9); NEUT % 74.5 % (47.0-73.0); PLATELET COUNT AUTOMATED 334 10*3/uL (130-400); RED BLOOD COUNT 4.54 10*6/uL (4.10-5.10); RED CELL DISTRI WIDTH 13.7 % (0-14.5); WHITE BLOOD COUNT 9.2 10*3/uL (4.8-10.8)
[2024-06-21] MEDS ORDERED: Piperacillin Sodium/Tazobact 50 ML IV ONE (12:30)
[2024-06-21] MEDS ORDERED: Vancomycin Hydrochloride 250 ML IV ONE (12:30)
[2024-06-21] MEDS ORDERED: FLUCONAZOLE 100 ML IV ONE (13:00)
[2024-06-21] MEDS ORDERED: ENTACAPONE 200 MG TAB PO SCH (19:00)
[2024-06-21] MEDS ORDERED: Carbidopa/Levodopa 25/100MG 1 TAB TAB PO SCH (19:00)
[2024-06-21 19:52] VITALS: BP 155/80
[2024-06-21] MEDS ORDERED: PIPERACILLIN SODIUM/TAZOBACTAM 2.25 GM in SODIUM CHLORIDE 0.9% 50 ML IV SCH (20:00)
[2024-06-21] MEDS ORDERED: FLUCONAZOLE 100 MG TAB PO SCH (22:00)
[2024-06-21] MEDS ORDERED: GABAPENTIN 100 MG CAP PO SCH (22:00)
[2024-06-21] MEDS ORDERED: NYSTATIN 15 GM BOT T SCH (22:00)
[2024-06-21] MEDS ORDERED: busPIRone Hydrochloride 10 MG TAB PO SCH (22:00)
[2024-06-21] MEDS ORDERED: Memantine Hydrochloride 5 MG TAB PO SCH (22:00)
[2024-06-21] MEDS ORDERED: Rivastigmine Tartrate 3 MG CAP PO SCH (22:00)
[2024-06-22 04:09] LABS: BASO % 0.6 % (0.0-1.0); EOS # 0.3 10*3/uL (0.0-0.4); EOS % 4.1 % (1.0-4.0); HEMATOCRIT 41.4 % (37.0-47.0); MEAN CELL VOLUME 95.2 fl (81.0-99.0); MEAN CORPUSCULAR HGB 32.2 pg (27.0-31.0); MEAN CORPUSCULAR HGB CONC 33.8 g/dl (33.0-37.0); MEAN PLATELET VOLUME 8.4 fl (9.6-12.3); MONO # 0.8 10*3/uL (0.1-1.0); MONO % 11.8 % (3.0-9.0); NEUT # 4.8 10*3/uL (2.3-7.9); NEUT % 67.7 % (47.0-73.0); PLATELET COUNT AUTOMATED 337 10*3/uL (130-400); RED BLOOD COUNT 4.35 10*6/uL (4.10-5.10); RED CELL DISTRI WIDTH 13.6 % (0-14.5)
[2024-06-22 04:44] LABS: ALKALINE PHOSPHATASE 60 U/L (46-116); BUN 13 mg/dl (9-23); CHLORIDE 106 mmol/L (98-107); POTASSIUM 4.3 mmol/L (3.4-5.1); TOTAL PROTEIN 6.5 gm/dL (6.0-8.0)
[2024-06-22 04:45] LABS: SGPT/ALT < 7 U/L (5-49)
[2024-06-22 05:04] VITALS: BP 129/63
[2024-06-22] MEDS ORDERED: Levothyroxine Sodium 25 MCG TAB PO SCH (06:00)
[2024-06-22] MEDS ORDERED: Carbidopa/Levodopa 25/100MG 1 TAB TAB PO SCH (07:00)
[2024-06-22 07:25] VITALS: BP 148/70
[2024-06-22] MEDS ORDERED: Duloxetine Hydrochloride 60 MG CAP PO SCH (10:00)
[2024-06-22] MEDS ORDERED: clonAZEPAM 0.5 MG TAB PO SCH (10:00)
[2024-06-22] MEDS ORDERED: ASPIRIN, CHEWABLE 81 MG TAB PO SCH (10:00)
[2024-06-22 12:46] VITALS: BP 119/50
[2024-06-22] MEDS ORDERED: methylPREDNISolone sod succ 40 MG VIAL IV SCH (14:00)
[2024-06-22 15:25] VITALS: BP 126/59
[2024-06-22] MEDS ORDERED: SODIUM CHLORIDE 0.9% IV SCH (16:00)
[2024-06-22] MEDS ORDERED: VANCOMYCIN HYDROCHLORIDE IV SCH (16:00)
[2024-06-22] MEDS ORDERED: MUPIROCIN 15 GM TUBE T SCH (22:00)
[2024-06-23] VITALS: BP 141/78
[2024-06-23 06:39] LABS: BASO % 0.2 % (0.0-1.0); HEMATOCRIT 39.6 % (37.0-47.0); MEAN CORPUSCULAR HGB 32.7 pg (27.0-31.0); MEAN CORPUSCULAR HGB CONC 33.8 g/dl (33.0-37.0); MEAN PLATELET VOLUME 8.7 fl (9.6-12.3); MONO # 0.1 10*3/uL (0.1-1.0); MONO % 1.4 % (3.0-9.0); NEUT # 8.1 10*3/uL (2.3-7.9); NEUT % 88.8 % (47.0-73.0); PLATELET COUNT AUTOMATED 315 10*3/uL (130-400); RED CELL DISTRI WIDTH 13.9 % (0-14.5); WHITE BLOOD COUNT 9.1 10*3/uL (4.8-10.8)
[2024-06-23 06:42] LABS: MEAN CELL VOLUME 96.6 fl (81.0-99.0)
[2024-06-23 06:43] LABS: BUN 14 mg/dl (9-23); CHLORIDE 107 mmol/L (98-107); POTASSIUM 4.3 mmol/L (3.4-5.1)
[2024-06-23 08:00] VITALS: BP 122/71
[2024-06-23 12:00] VITALS: BP 120/75
[2024-06-23 16:00] VITALS: BP 120/75
[2024-06-23] MEDS ORDERED: AUGMENTIN 500500 M1 PO (17:54)
[2024-06-23] MEDS ORDERED: LOTRISONE 0.05%15 GM PO (17:56)
[2024-06-23 20:00] VITALS: BP 148/62
[2024-06-23] MEDS ORDERED: BETAMETHASONE T SCH (22:00)
[2024-06-23] MEDS ORDERED: [UNRECOGNIZED DRUG - OTHER] T SCH (22:00)
[2024-06-24] VITALS: BP 176/89
[2024-06-24 04:00] VITALS: BP 148/91
[2024-06-24] MEDS ORDERED: VANCOMYCIN HYDROCHLORIDE IV SCH (04:00)
[2024-06-24] MEDS ORDERED: SODIUM CHLORIDE 0.9% IV SCH (04:00)
[2024-06-24 05:52] LABS: BUN 17 mg/dl (9-23); CHLORIDE 107 mmol/L (98-107); POTASSIUM 4.1 mmol/L (3.4-5.1)
[2024-06-24 06:03] LABS: MEAN CELL VOLUME 94.1 fl (81.0-99.0); MEAN CORPUSCULAR HGB 32.2 pg (27.0-31.0); MEAN CORPUSCULAR HGB CONC 34.2 g/dl (33.0-37.0); MEAN PLATELET VOLUME 8.7 fl (9.6-12.3); PLATELET COUNT AUTOMATED 360 10*3/uL (130-400); RED BLOOD COUNT 4.04 10*6/uL (4.10-5.10); RED CELL DISTRI WIDTH 13.9 % (0-14.5); WHITE BLOOD COUNT 13.9 10*3/uL (4.8-10.8)
[2024-06-24 06:08] LABS: MANUAL DIFF REFLEX YES
[2024-06-24 07:42] LABS: PLATELET SUFFICIENCY NORMAL (NORMAL); TOTAL CELLS COUNTED 100 #CELLS
[2024-06-24 08:00] VITALS: BP 129/62
[2024-06-24 12:00] VITALS: BP 146/67
[2024-06-24 16:00] VITALS: BP 153/82
[2024-06-24] MEDS ORDERED: DEXTROSE 10 % IN WATER 250 ML IV PRN (18:50)
[2024-06-24 20:00] VITALS: BP 157/79
[2024-06-24] MEDS ORDERED: INSULIN LISPRO 1 UNIT/0.01 ML SQ SCH (22:00)
[2024-06-25] VITALS: BP 151/78; BP 170/87
[2024-06-25 04:00] VITALS: BP 164/82
[2024-06-25 08:00] VITALS: BP 177/80
[2024-06-25 12:00] VITALS: BP 116/92
[2024-06-25 16:00] VITALS: BP 134/62
== END 2024-06-25 17:30 | disposition home health service (06) | DRG 603 ==
LOC: ED 10:08 → 4E 12:40 → EDHOLD 12:40 → 4E 06-22 14:52 → ICCU 06-22 18:47 → 4E 06-22 21:43
PROVIDERS: Internal Medicine; ADMIT Internal Medicine; ATTEND Internal Medicine
DX: L03.818 Cellulitis of other sites (principal); F02.83 Dementia in other diseases classified elsewhere, unspecified severity, with mood disturbance; F02.84 Dementia in other diseases classified elsewhere, unspecified severity, with anxiety; F33.1 Major depressive disorder, recurrent, moderate; L30.8 Other specified dermatitis; B96.89 Other specified bacterial agents as the cause of diseases classified elsewhere; B37.2 Candidiasis of skin and nail; G20.A1 Parkinson's disease without dyskinesia, without mention of fluctuations; E03.9 Hypothyroidism, unspecified; D72.829 Elevated white blood cell count, unspecified; E11.65 Type 2 diabetes mellitus with hyperglycemia; G30.1 Alzheimer's disease with late onset; I10 Essential (primary) hypertension; T38.0X5A Adverse effect of glucocorticoids and synthetic analogues, initial encounter; Z88.8 Allergy status to other drugs, medicaments and biological substances; Z91.09 Other allergy status, other than to drugs and biological substances; Z79.899 Other long term (current) drug therapy; Z79.01 Long term (current) use of anticoagulants; Z79.2 Long term (current) use of antibiotics; Z90.710 Acquired absence of both cervix and uterus; Z80.8 Family history of malignant neoplasm of other organs or systems; Z82.49 Family history of ischemic heart disease and other diseases of the circulatory system; Y92.89 Other specified places as the place of occurrence of the external cause

== ENCOUNTER → 2024-06-29 | Outpatient (CLI) | payer MEDICARE ==
[~2024-06-29] MED LIST changes: +AUGMENTIN 500500 M1 PO; +FLUCONAZOLE100 MG PO; +LOTRISONE 0.05%15 GM PO; +NAMENDA-5 PO
== END | disposition home or self-care (01) ==
LOC: WOUNDCARE 02:20
PROVIDERS: ATTEND Nurse Practitioner Family
DX: R21 Rash and other nonspecific skin eruption (principal); A49.01 Methicillin susceptible Staphylococcus aureus infection, unspecified site; E03.9 Hypothyroidism, unspecified; G20.A1 Parkinson's disease without dyskinesia, without mention of fluctuations; G30.9 Alzheimer's disease, unspecified; F02.80 Dementia in other diseases classified elsewhere, unspecified severity, without behavioral disturbance, psychotic disturbance, mood disturbance, and anxiety; F41.9 Anxiety disorder, unspecified; F32.A Depression, unspecified; Z98.51 Tubal ligation status; Z98.890 Other specified postprocedural states; Z79.899 Other long term (current) drug therapy